=== PATIENT | female | born 1940 | race Caucasian/White ===

== ENCOUNTER 2020-04-28 07:59 | Emergency (ER) | payer MEDICARE, OTHER ==
[~2020-04-28] VITALS: Ht 152.4 cm; Wt 58.2 kg
[2020-04-28] MEDS ORDERED: bacitracin 15gm ointment TP ONE (08:45)
[2020-04-28] MEDS ORDERED: TETanus/Pertussis (Acell)/Diphther VAC/PF (Tdap-Adult) 0.5ml syringe IMVAC ONE (08:45)
[2020-04-28] MEDS ORDERED: amox tr/potassium clavulanate 875/125mg TAB PO ONE (08:45)
[2020-04-28] MEDS ORDERED: ondansetron 4mg rapidly disintigrating tab PO ONE (08:45)
[2020-04-28] MEDS ORDERED: LIDOcaine 1% W/epiNEPHrine 1:100,000 20ml vial SQ ONE (09:15)
[2020-04-28] MEDS ORDERED: AMOX1TAB87 PO (10:27)
[2020-04-28 10:47] VITALS: BP 141/54
== END 2020-04-28 10:52 | disposition home or self-care (01) ==
LOC: ER 08:00
DX: S51.811A Laceration without foreign body of right forearm, initial encounter (principal); R51 Headache; S01.01XA Laceration without foreign body of scalp, initial encounter; W18.09XA Striking against other object with subsequent fall, initial encounter; S51.851A Open bite of right forearm, initial encounter; Y93.89 Activity, other specified; Y92.89 Other specified places as the place of occurrence of the external cause; Y99.8 Other external cause status
CPT/HCPCS: 12002; 70450; 72125; 90471; 90715; 99285

== ENCOUNTER 2022-09-26 12:08 | Outpatient (CLI) | payer MEDICARE, BC ==
[~2022-09-26 12:08] MED LIST: ASPI-1071 PO; CHOL50004 PO; Citracal PO; LEVO88TA7 PO; MAGN200T PO; METO25TA6 PO; OMEP20CA16 PO; SIMV-42 PO; Zinc PO
[2022-09-26 13:06] LABS: ALBUMIN 3.6 G/DL (3.4-5.0); ANION GAP 8 (8-16); BLOOD UREA NITROGEN 18 MG/DL (7-18); CALCIUM 9.1 MG/DL (8.5-10.1); CHLORIDE 106 MMOL/L (99-107); CREATININE 0.75 MG/DL (0.40-0.90); GLUCOSE 96 MG/DL (70-104); POTASSIUM 4.3 MMOL/L (3.5-5.1); SODIUM 142 MMOL/L (135-145); TOTAL CARBON DIOXIDE 28.3 MMOL/L (24-32); eGFR 74 ML/MIN
[2022-09-26] MEDS ORDERED: IODIXANOL 320 MG/ML INFUS..BTL 100ML IV ONE (13:47)
== END 2022-09-26 23:59 | disposition home or self-care (01) ==
LOC: RAD 12:08
PROVIDERS: ATTEND Thoracic Surgery (Cardiothoracic Vascular Surgery)
DX: I70.0 Atherosclerosis of aorta (principal); R06.02 Shortness of breath; I65.29 Occlusion and stenosis of unspecified carotid artery; I25.10 Atherosclerotic heart disease of native coronary artery without angina pectoris; I51.7 Cardiomegaly; K80.20 Calculus of gallbladder without cholecystitis without obstruction
CPT/HCPCS: 36415; 71275; 74174; 80048; J3490; Q9967

== ENCOUNTER → 2022-10-05 | Outpatient (CLI) | payer MEDICARE, BC | END | disposition home or self-care (01) | LOC: RAD 12:56 | PROVIDERS: ATTEND Internal Medicine Cardiovascular Disease | DX: Z01.818 Encounter for other preprocedural examination (principal); I35.0 Nonrheumatic aortic (valve) stenosis; R06.02 Shortness of breath; I65.29 Occlusion and stenosis of unspecified carotid artery; Z95.4 Presence of other heart-valve replacement | CPT/HCPCS: 71046; 94010; 94727; 94729 ==

== ENCOUNTER 2023-01-09 13:25 | Outpatient (CLI) | payer MEDICARE, BC ==
[2023-01-09 14:55] LABS: CLARITY,URINE CLEAR (Clear); COLOR,URINE STRAW (Yellow); GLUCOSE, URINE NEGATIVE (Neg); KETONES,URINE NEGATIVE (Neg); LEUKOCYTE ESTERASE ,URINE MODERATE (Neg); NITRITES, URINE NEGATIVE (Neg); OCCULT BLOOD,URINE NEGATIVE (Neg); PH,URINE 6.5 (4.8-8.0); PROTEIN,URINE NEGATIVE (Neg); UROBILINOGEN,URINE 0.2 E.U/dL (0.2-1.0)
[2023-01-09 15:01] LABS: UA COLLECTION TYPE VOIDED
[2023-01-09 15:03] LABS: RBC,URINE NONE SEEN /HPF (0-2)
[2023-01-09 15:04] LABS: BACTERIA,URINE FEW /HPF (Neg); MUCUS STRANDS NONE SEEN /LPF (Neg); PRE OP INR 0.9 INR; PRE OP PROTIME 10.2 SECONDS (9.0-12.0); SQUAMOUS EPITHELIAL CELL,UR FEW /LPF (FEW)
[2023-01-09 15:07] LABS: ALBUMIN 3.8 G/DL (3.4-5.0); ALKALINE PHOSPHATASE 105 IU/L (46-116); BLOOD UREA NITROGEN 18 MG/DL (7-18); BUN/CREATININE RATIO 23.4 (10.0-20.0); CALCIUM 9.3 MG/DL (8.5-10.1); CHLORIDE 106 MMOL/L (99-107); CREATININE 0.77 MG/DL (0.40-0.90); PRE OP ALT 35 U/L (30-65); PRE OP ANION GAP 4 (8-16); PRE OP AST 22 U/L (10-37); PRE OP BILIRUB, TOTAL 0.7 MG/DL (0.0-1.0); PRE OP GLUCOSE 86 MG/DL (70-104); PRE OP POTASSIUM 3.8 MMOL/L (3.4-5.1); PRE OP SODIUM 142 MMOL/L (135-145); TOTAL CARBON DIOXIDE 32.3 MMOL/L (24-32); TOTAL PROTEIN 7.5 G/DL (6.4-8.2); eGFR 72 ML/MIN
[2023-01-09 15:10] LABS: BASOPHILS # (AUTO) 0.1 X10'3 (0-0.2); BASOPHILS % (AUTO) 1.1 % (0-1); EOSINOPHILS # (AUTO) 0.6 X10'3 (0-0.9); EOSINOPHILS % (AUTO) 5.8 % (0-6); LYMPHOCYTES # (AUTO) 1.8 X10'3 (1.1-4.8); MEAN CORPUSCULAR HEMOGLOBIN 29.5 PG (27.0-31.0); MEAN CORPUSCULAR HGB CONC 33.1 g/dL (33.0-36.5); MEAN CORPUSCULAR VOLUME 89.2 FL (78-98); MEAN PLATELET VOLUME 7.6 FL (7.4-10.4); MONOCYTES # (AUTO) 0.8 X10'3 (0-0.9); MONOCYTES % (AUTO) 7.9 % (2-12); NEUTROPHILS # (AUTO) 6.8 X10'3 (1.8-7.7); NEUTROPHILS % (AUTO) 67.2 % (42-75); PRE OP HEMATOCRIT 40.8 % (35.0-45.0); PRE OP HEMOGLOBIN 13.5 g/dL (12.0-16.0); PRE OP PLATELET COUNT 337 X10'3 (140-440); RED BLOOD COUNT 4.58 X10'6 (4.20-5.60); RED CELL DISTRIBUTION WIDTH 14.4 % (11.5-14.5)
[2023-01-09] MEDS ORDERED: ATOR40TA72 (15:44)
== END 2023-01-09 23:59 | disposition home or self-care (01) ==
LOC: LAB 13:25 → EDSTATUS 01-17 11:15
PROVIDERS: ATTEND Internal Medicine Cardiovascular Disease
DX: I35.0 Nonrheumatic aortic (valve) stenosis (principal); I70.0 Atherosclerosis of aorta; R00.1 Bradycardia, unspecified; I65.29 Occlusion and stenosis of unspecified carotid artery; R06.02 Shortness of breath; Z00.00 Encounter for general adult medical examination without abnormal findings; Z98.890 Other specified postprocedural states; Z79.899 Other long term (current) drug therapy
CPT/HCPCS: 36415; 71046; 80053; 81001; 85025; 85610; 85730; 86885; 86900; 86901; 86920; 87077; 87081; 87088; 87186; 93005

== ENCOUNTER 2023-01-31 09:30 | Inpatient (IN) | payer MEDICARE, BC ==
[~2023-01-31] VITALS: Ht 144.8 cm; Wt 59.0 kg
[~2023-01-31 09:30] MED LIST changes: +ATOR40TA72 PO; -SIMV-42 PO
[2023-02-20] MEDS ORDERED: IMMODIUM (14:03)
[2023-02-20 14:53] LABS: BASOPHILS # (AUTO) 0.1 X10'3 (0-0.2); BASOPHILS % (AUTO) 0.7 % (0-1); EOSINOPHILS # (AUTO) 0.4 X10'3 (0-0.9); EOSINOPHILS % (AUTO) 4.4 % (0-6); LYMPHOCYTES # (AUTO) 1.6 X10'3 (1.1-4.8); LYMPHOCYTES % (AUTO) 16.5 % (21-51); MEAN CORPUSCULAR HEMOGLOBIN 29.6 PG (27.0-31.0); MEAN CORPUSCULAR VOLUME 89.6 FL (78-98); MEAN PLATELET VOLUME 7.4 FL (7.4-10.4); MONOCYTES # (AUTO) 0.6 X10'3 (0-0.9); MONOCYTES % (AUTO) 6.1 % (2-12); NEUTROPHILS # (AUTO) 7.2 X10'3 (1.8-7.7); NEUTROPHILS % (AUTO) 72.3 % (42-75); PRE OP HEMATOCRIT 39.8 % (35.0-45.0); PRE OP HEMOGLOBIN 13.1 g/dL (12.0-16.0); PRE OP PLATELET COUNT 295 X10'3 (140-440); RED BLOOD COUNT 4.44 X10'6 (4.20-5.60); RED CELL DISTRIBUTION WIDTH 14.1 % (11.5-14.5)
[2023-02-20 15:03] LABS: PRE OP INR 0.9 INR; PRE OP PROTIME 10.2 SECONDS (9.0-12.0)
[2023-02-20 15:14] LABS: ALBUMIN 3.5 G/DL (3.4-5.0); ALBUMIN/GLOBULIN RATIO 1.1 (1.1-1.5); ALKALINE PHOSPHATASE 92 IU/L (46-116); BLOOD UREA NITROGEN 18 MG/DL (7-18); BUN/CREATININE RATIO 21.2 (10.0-20.0); CALCIUM 9.2 MG/DL (8.5-10.1); CHLORIDE 104 MMOL/L (99-107); CREATININE 0.85 MG/DL (0.40-0.90); PRE OP ALT 39 U/L (30-65); PRE OP ANION GAP 6 (8-16); PRE OP AST 18 U/L (10-37); PRE OP BILIRUB, TOTAL 0.9 MG/DL (0.0-1.0); PRE OP GLUCOSE 94 MG/DL (70-104); PRE OP POTASSIUM 4.4 MMOL/L (3.4-5.1); PRE OP SODIUM 140 MMOL/L (135-145); TOTAL CARBON DIOXIDE 29.6 MMOL/L (24-32); TOTAL PROTEIN 6.8 G/DL (6.4-8.2); eGFR 64 ML/MIN
[2023-02-28] VITALS (24 sets, daily range): BP systolic 105–176; BP diastolic 41–94
[2023-02-28] MEDS ORDERED: ringers solution, lacted 1,000 ML IV SCH ×2 (05:00→08:05)
[2023-02-28] MEDS ORDERED: ondansetron/PF 4mg/2ml inj IV PRN ×3 (05:30→10:20)
[2023-02-28] MEDS ORDERED: phenylephrine inj 50 MG in normal saline 250ml IV solN IV SCH (05:30)
[2023-02-28] MEDS ORDERED: cefazolin/dext.iso 2gm/100ml IVPB IV ONE (05:30)
[2023-02-28] MEDS ORDERED: famotidine 20mg tablet PO ONE (05:30)
[2023-02-28] MEDS ORDERED: DOCUMENT DATE & TIME OF BETA-BLOCKER PO ONE (05:30)
[2023-02-28] MEDS ORDERED: vancomycin/NS 1 GM ADD-VANTAGE 250 ML IV ONE (05:30)
[2023-02-28] MEDS ORDERED: nitroPRUSSIDE (NIPRIDE) (200MCG/ML) 100ML Drip IV SCH (05:30)
[2023-02-28] MEDS ORDERED: aspirin 325mg tablet PO ONE (05:30)
[2023-02-28] MEDS ORDERED: LIDOcaine 1% (10mg/ml) 2ml vial ONE (06:45)
[2023-02-28] MEDS ORDERED: clopidogrel 300mg tablet PO ONE (07:10)
[2023-02-28] MEDS ORDERED: protamine sulfate 10mg/ml inj. ONE (07:37)
[2023-02-28] MEDS ORDERED: morphine 2 MG/ML inj. syringe IV PRN (08:05)
[2023-02-28] MEDS ORDERED: meperidine/PF 25mg/ml syringe IV PRN ×3 (08:05)
[2023-02-28] MEDS ORDERED: proCHLORperazine 10 MG/2 ml inj IV PRN ×2 (08:05→10:20)
[2023-02-28] MEDS ORDERED: morphine 4 MG/ML inj SYRINge IV PRN (08:05)
[2023-02-28] MEDS ORDERED: heparin 1,000 UNITS/NS 500ml 1,500 ML ONE (08:54)
[2023-02-28] MEDS ORDERED: LIDOcaine 1% 30ml preserv. free vial ONE (08:54)
[2023-02-28] MEDS ORDERED: iohexol 350MG/ML 100ml bottle IV ONE ×2 (08:54→09:33)
[2023-02-28] MEDS ORDERED: fentaNYL/PF 50MCG/1 ML 2ML syringe ONE (09:01)
[2023-02-28] MEDS ORDERED: midazolam 1 mg/ML 2ml injection ONE (09:01)
[2023-02-28] MEDS ORDERED: propofol inj 20 ML IV ONE ×2 (09:02)
[2023-02-28] MEDS ORDERED: heparin 1,000unit/ml 10ml vial 10 ML ONE (09:23)
[2023-02-28] MEDS ORDERED: NITR100C11 PO (09:24)
[2023-02-28] MEDS ORDERED: potassium Cl 40MEQ/1/2NS 520ml 520 ML IV PRN (10:20)
[2023-02-28] MEDS ORDERED: potassium Cl 20mEq/100mL bag 100 ML IV PRN (10:20)
[2023-02-28] MEDS ORDERED: diphenhydrAMINE 25mg capsule PO PRN (10:20)
[2023-02-28] MEDS: normal saline 1000ml 1,000 ML IV SCH ×2 (10:20→20:20)
[2023-02-28] MEDS ORDERED: potassium Cl 40MEQ/270ML bag 250 ML IV PRN (10:20)
[2023-02-28] MEDS ORDERED: magnesium 2GM in 50ml NS 50 ML IV PRN (10:20)
[2023-02-28] MEDS ORDERED: ALPRAZolam 0.25mg tablet PO PRN (10:20)
[2023-02-28] MEDS ORDERED: HYDROcodone/acetaminophen 5mg/325mg tablet PO PRN (10:20)
[2023-02-28] MEDS ORDERED: potassium Cl 20 mEq SR tablet PO PRN (10:20)
[2023-02-28] MEDS ORDERED: magnesium 4gm in 100ml NS 100 ML IV PRN (10:20)
[2023-02-28] MEDS ORDERED: acetaminophen 325mg tablet PO PRN (10:20)
[2023-02-28] MEDS ORDERED: pantoprazole 40mg Tablet.DR PO PRN (10:20)
[2023-02-28] MEDS ORDERED: labetalol 20mg/4ml (5mg/ml) syringe IV PRN (10:20)
[2023-02-28] MEDS ORDERED: hydrALAZINE 20mg/ml inj. IV PRN (10:20)
[2023-02-28] MEDS ORDERED: potassium CL 10mEq/100ml bag 100 ML IV PRN (10:20)
[2023-02-28] MEDS ORDERED: docusate sod 100mg capsule PO PRN (10:20)
--- NOTE | 2023-02-28 10:28 | NUR ---
Received from OR via HOSPITAL BED TO RR 7 PT SUPINE, accompanied by Anesthesiologist DR CHAPIN and report given by Anesthesiolgist. PT PRESENTS WITH PIV 20 G RIGHT FOREARM, ART LINE LEFT WRIST, SPO2 97 ROOM AIR, LR RUNNING AT 100MLS/HR, NEURO CHECK INTACY, BILATER GROIN DRESSINGS CDI, PALPATED PEDAL AND POSTERIOR TIBIAL PULSES, VSS. PT CHANGED INLTO [facility] AND SCD'S APPLIED. Addendum: 02/28/23 at 1050 by Arlene Horn RN, RN Amended: Links added.
--- NOTE | 2023-02-28 11:45 | NUR ---
PT TURNED TO GO TO THE BATHROOM AND PLACED ON A BED DEVRIES, BED DEVRIES REMOVED AND LEFT GROIN DRESSING HAS BLOOD. PRESSURE APPLIED AND POSSIBLE DRESSING CHANGE.
--- NOTE | 2023-02-28 11:51 | NUR ---
LEFT GROIN DRESSING PRESSURE HELD FOR APROX 5 MINUTES, WITH NEW DRESSING AND TEGADERM. NO SIGN OF DRAINAGE AT THIS TIME. Addendum: 02/28/23 at 1214 by Arlene Horn RN, RN Amended: Links added.
--- NOTE | 2023-02-28 12:08 | NUR ---
Report called to receiving nurse PI;GABY DEMARCO. Transferred via HOSPITAL BED TO ROOM 1340, BED IN LOW LOCKED POSITION WITH CLL LIGHT IN REACH. JERILYN DEMARCO GIVEN EXTRA 4X4 AND AARON GONZALEZ FOR PT. BILATER GROIN SITES CHECKED, SOFT NON TENDER, NO BLEEDING AT THIS TIME. TWO PT BAGS ONE BROWN BAG AND ONE PT BELONGING BAG TO ROOM WITH PT. Special Issues communicated to receiving nurse. Addendum: 02/28/23 at 1238 by Arlene Horn RN RN Amended: Links added.
--- NOTE | 2023-02-28 15:39 | NUR ---
Report to Vagras on Tele. Bilat groin sites soft, no hematoma, VSS.
[2023-02-28] MEDS: sod chloride 0.9% 10ml flush syringe IV SCH (16:00)
[2023-02-28] MEDS: ceFAZolin 1GM/D5W- ADD-VANTAGE 50 ML IV SCH (16:00)
--- NOTE | 2023-02-28 18:15 | NUR ---
Patient in room PCU 3014. I have received report from NILAM Kaye and had the opportunity to ask questions and assume patient care.
[2023-02-28] MEDS: vancomycin/NS 1 GM ADD-VANTAGE 250 ML IV SCH (19:43)
[2023-02-28] MEDS: metoprolol tartrate 25mg tablet PO SCH (19:44)
[2023-02-28] MEDS: nitrofuran monohydrate/nitrofuran macrocrysal 100 MG (MacroBID) capsule PO SCH (20:00)
[2023-02-28] MEDS ORDERED: atorvastatin 20mg tablet PO SCH (21:00)
[2023-03-01] MEDS: sod chloride 0.9% 10ml flush syringe IV SCH ×2 (00:24→08:00)
[2023-03-01] MEDS: ceFAZolin 1GM/D5W- ADD-VANTAGE 50 ML IV SCH ×2 (00:24→07:51)
[2023-03-01 02:00] VITALS: BP 126/48
[2023-03-01 06:00] VITALS: BP 139/45
--- NOTE | 2023-03-01 06:29 | NUR ---
Problems reprioritized. Patient report given, questions answered & plan of care reviewed with NILAM Kaye.
[2023-03-01] MEDS: metoprolol tartrate 25mg tablet PO SCH (07:52)
[2023-03-01] MEDS: nitrofuran monohydrate/nitrofuran macrocrysal 100 MG (MacroBID) capsule PO SCH (07:52)
[2023-03-01] MEDS ORDERED: cholecalciferol (vitamin D3) 1,000 unit (25mcg) tablet PO SCH (08:00)
[2023-03-01] MEDS: vancomycin/NS 1 GM ADD-VANTAGE 250 ML IV SCH (08:00)
[2023-03-01] MEDS ORDERED: magnesium oxide 400mg tablet PO SCH (08:00)
[2023-03-01] MEDS ORDERED: calcium carbonate/vitamin D3 tablet PO SCH (08:00)
[2023-03-01] MEDS ORDERED: aspirin 81mg, enteric-coated 1 TAB TABLET.DR PO SCH (08:00)
[2023-03-01] MEDS ORDERED: zinc sulfate 220mg capsule PO SCH (08:00)
[2023-03-01] MEDS ORDERED: levoTHYROXINE 88mcg tablet PO SCH (08:00)
[2023-03-01] MEDS ORDERED: pantoprazole 40mg Tablet.DR PO SCH (08:00)
[2023-03-01] MEDS ORDERED: aspirin 81mg tab.chew PO SCH (08:30)
[2023-03-01 08:40] LABS: BASOPHILS # (AUTO) 0.1 X10'3 (0-0.2); BASOPHILS % (AUTO) 1.2 % (0-1); EOSINOPHILS # (AUTO) 0.2 X10'3 (0-0.9); EOSINOPHILS % (AUTO) 2.2 % (0-6); HEMATOCRIT 38.9 % (35.0-45.0); HEMOGLOBIN 12.7 g/dl (12.0-16.0); LYMPHOCYTES # (AUTO) 1.2 X10'3 (1.1-4.8); LYMPHOCYTES % (AUTO) 12.2 % (21-51); MEAN CORPUSCULAR HEMOGLOBIN 29.3 PG (27.0-31.0); MEAN CORPUSCULAR HGB CONC 32.7 g/dL (33.0-36.5); MEAN CORPUSCULAR VOLUME 89.7 FL (78-98); MEAN PLATELET VOLUME 7.1 FL (7.4-10.4); MONOCYTES # (AUTO) 0.8 X10'3 (0-0.9); MONOCYTES % (AUTO) 7.8 % (2-12); NEUTROPHILS # (AUTO) 7.5 X10'3 (1.8-7.7); NEUTROPHILS % (AUTO) 76.6 % (42-75); PLATELET COUNT 285 X10'3 (140-440); RED BLOOD COUNT 4.33 X10'6 (4.20-5.60); RED CELL DISTRIBUTION WIDTH 14.1 % (11.5-14.5); WHITE BLOOD COUNT 9.8 X10'3 (4.5-11.0)
[2023-03-01 09:38] LABS: ALANINE AMINOTRANSFERASE 31 U/L (12-78); ALBUMIN 3.2 G/DL (3.4-5.0); ALKALINE PHOSPHATASE 90 IU/L (46-116); ANION GAP 10 (8-16); ASPARTATE AMINO TRANSFERASE 32 U/L (10-37); BILIRUBIN,TOTAL 1.1 MG/DL (0.1-1.0); BLOOD UREA NITROGEN 14 MG/DL (7-18); BUN/CREATININE RATIO 16.7 (10.0-20.0); CALCIUM 8.8 MG/DL (8.5-10.1); CHLORIDE 107 MMOL/L (99-107); CREATININE 0.84 MG/DL (0.40-0.90); GLUCOSE 94 MG/DL (70-104); MAGNESIUM 2.2 MG/DL (1.5-2.4); POTASSIUM 3.5 MMOL/L (3.5-5.1); SODIUM 144 MMOL/L (135-145); TOTAL CARBON DIOXIDE 27.2 MMOL/L (24-32); TOTAL PROTEIN 6.3 G/DL (6.4-8.2); eGFR 65 ML/MIN
== END 2023-03-01 14:47 | disposition home or self-care (01) | DRG 267 ==
LOC: EDSTATUS 09:30 → PAS IN 02-28 05:49 → PCU 3S 02-28 16:05
PROVIDERS: ADMIT Internal Medicine Cardiovascular Disease; ATTEND Internal Medicine Cardiovascular Disease
PROC: B2111ZZ Fluoroscopy of Multiple Coronary Arteries using Low Osmolar Contrast (ICD-10-PCS; 2023-02-28)
PROC: B41D1ZZ Fluoroscopy of Aorta and Bilateral Lower Extremity Arteries using Low Osmolar Contrast (ICD-10-PCS; 2023-02-28)
PROC: 02RF38Z Replacement of Aortic Valve with Zooplastic Tissue, Percutaneous Approach (ICD-10-PCS; principal; 2023-02-28 09:01)
DX: I35.0 Nonrheumatic aortic (valve) stenosis (principal); Z00.6 Encounter for examination for normal comparison and control in clinical research program; N39.0 Urinary tract infection, site not specified; I10 Essential (primary) hypertension; E78.5 Hyperlipidemia, unspecified; I25.10 Atherosclerotic heart disease of native coronary artery without angina pectoris; K21.9 Gastro-esophageal reflux disease without esophagitis; Z85.72 Personal history of non-Hodgkin lymphomas
CPT/HCPCS: 33361; 36415; 71045; 71046; 76937; 80053; 82948; 83735; 83880; 84443; 85025; 85347; 85610; 85730; 86885; 86900; 86901; 86920; 87081; 93005; 93308; A4618; A6258; A6449; C1725; C1751; C1756; C1760; C1769; C1894; G0378; J0360; J0690; J1644; J2250; J2370; J2704; J2720; J3010; J3370; J3490; J7030; J7040; J7050; J7120; Q9967

== ENCOUNTER 2023-04-06 19:52 | Emergency (ER) | payer MEDICARE, BC ==
[~2023-04-06] VITALS: Ht 149.9 cm; Wt 60.2 kg
[~2023-04-06 19:52] MED LIST changes: +IMMODIUM; +NITR100C11 PO
[2023-04-06 21:26] VITALS: BP 165/71; PULSE 66; RESP 17; TEMP 98.1; O2SAT 98
[2023-04-07] MEDS ORDERED: CLIN-214 PO (00:51)
== END 2023-04-07 00:56 | disposition home or self-care (01) ==
LOC: ER 19:53
DX: S31.134A Puncture wound of abdominal wall without foreign body, left lower quadrant without penetration into peritoneal cavity, initial encounter (principal); R22.42 Localized swelling, mass and lump, left lower limb; Z79.82 Long term (current) use of aspirin; Z79.899 Other long term (current) drug therapy; Z79.2 Long term (current) use of antibiotics; X58.XXXA Exposure to other specified factors, initial encounter; Y93.89 Activity, other specified; Y92.89 Other specified places as the place of occurrence of the external cause; Y99.8 Other external cause status
CPT/HCPCS: 99283